=== PATIENT | female | born 1995 | race Caucasian/White ===

== ENCOUNTER 2016-12-16 20:47 | Emergency (ER) | payer OTHER, SELFPAY ==
[2016-12-16 21:03] VITALS: TEMP 97.7; BMI 22.6
[2016-12-16 22:57] LABS: ADD MANUAL DIFF? NO
[2016-12-16 23:04] LABS: PH,URINE 6.5 (4.7-8.0); URINE BILIRUBIN NEGATIVE (NEGATIVE); URINE BLOOD LARGE (NEGATIVE); URINE GLUCOSE (UA) NEGATIVE (NEGATIVE); URINE KETONE 40 mg/dL (NEGATIVE); URINE LEUKOCYTE ESTERASE NEGATIVE Leu/uL (NEGATIVE); URINE PROTEIN NEGATIVE mg/dL (<30 mg/dL); URINE UROBILINOGEN 0.2 E.U./dL (<1 E.U./dL)
[2016-12-16 23:05] LABS: BASO # 0.03 K/mm3 (0.0-2.0); BASO % 0.3 % (0.0-3.0); EOS # 0.1 (0.0-0.7); EOS % 0.8 % (1.5-5.0); GRAN # 7.79 (1.4-6.5); GRAN % 72.8 % (50.0-68.0); HEMATOCRIT 41.4 % (36.0-48.0); LYMPH # 2.2 (1.2-3.4); LYMPH % 20.2 % (22.0-35.0); MEAN CELL VOLUME 82.1 fL (80.0-105.0); MEAN CORPUSCULAR HEMOGLOBIN 29.6 pg (25.0-35.0); MEAN PLATELET VOLUME 9.9 fl (7.0-11.0); MONO # 0.6 (0.1-0.6); MONO % 5.9 % (1.0-6.0); PLATELET COUNT 334 10^3/uL (120.0-450.0); RED CELL DISTRIBUTION WIDTH 12.6 % (11.5-14.5); URINE APPEARANCE CLEAR (CLEAR); URINE COLOR YELLOW (YELLOW); WHITE BLOOD COUNT 10.7 10^3/ul (4.5-11.0)
[2016-12-16 23:06] LABS: URINE RBC 25 - 30 /hpf (0-2)
[2016-12-16 23:14] LABS: ALB/GLOB RATIO 1.1 (1.1-1.8); ALKALINE PHOSPHATASE 72 U/L (38-133); ALT/SGPT 27 U/L (7-56); AST/SGOT 41 U/L (15-39); BILIRUBIN,TOTAL 0.5 mg/dL (0.2-1.3); BLOOD UREA NITROGEN 7 mg/dL (7-21); CALCIUM 9.6 mg/dL (8.4-10.5); CARBON DIOXIDE 27 mmol/L (21-33); CHLORIDE 100 mmol/L (98-107); GFR AFRICAN-AMERICAN > 60; GLUCOSE,RANDOM 99 mg/dL (70-110); POTASSIUM 3.8 mmol/L (3.6-5.0); SODIUM 138 mmol/L (132-148)
--- NOTE | 2016-12-17 01:28 | ED PDOC ---
Arrival/HPI - General Historian: Patient - General Chief Complaint: Anxiety Time Seen by Provider: 12/16/16 22:17 - History of Present Illness Narrative History of Present Illness (Text): 12/17/16 01:30 21yr old female presents today having anxiety attack. Patient states she has a history of anxiety and was told that she should go to the gym whenever she feels anxiety coming on. Patient states she went to the gym to try and work off some energy but she felt like she couldn't be around anyone at that time so she came back home. Patient states she's been feeling depressed for the past day or so. Patient states being around her family seems to help. She denies suicidal or homicidal ideations. No chest pain or shortness of breath. No fevers or chills. Patient states she developed slight headache after the anxiety attacks subsided. States she is feeling much better at present time (Madhavi Purcell) Past Medical History - Provider Review Nursing Documentation Reviewed: Yes - Travel History Have you recently traveled outside [place] w/in the past 3 mons?: No - Infectious Disease Hx of Infectious Diseases: None - Tetanus Immunization Tetanus Immunization: Unknown - Cardiac Hx Cardiac Disorders: No Hx Hypertension: No - Pulmonary Hx Tuberculosis: No - Neurological HX Cerebrovascular Accident: No Hx Seizures: No - HEENT Hx HEENT Disorder: No - Renal Hx Renal Disorder: No - Endocrine/Metabolic Hx Endocrine Disorders: No - Hematological/Oncological Hx Cancer: No - Integumentary Hx Dermatological Disorder: No - Musculoskeletal/Rheumatological Hx Musculoskeletal Disorders: No Hx Falls: No - Gastrointestinal Hx Gastrointestinal Disorders: No - Genitourinary/Gynecological Hx Sexually Transmitted Diseases: No - Psychiatric Hx Psychophysiologic Disorder: No Hx Substance Use: No - Past Surgical History Past Surgical History: No Previous - Anesthesia Hx Anesthesia: No Hx Anesthesia Reactions: No Hx Malignant Hyperthermia: No - Suicidal Assessment Feels Threatened In Home Enviroment: No Family/Social History - Physician Review Nursing Documentation Reviewed: Yes Family/Social History: Unknown Family HX Smoking Status: Never Smoked Hx Alcohol Use: No Hx Substance Use: No Hx Substance Use Treatment: No Allergies/Home Meds Allergies/Adverse Reactions: Allergies No Known Allergies Allergy (Verified 10/21/15 12:01) Review of Systems - Review of Systems Constitutional: absent: Fatigue, Fevers Respiratory: absent: SOB, Cough Cardiovascular: absent: Chest Pain, Palpitations Gastrointestinal: absent: Abdominal Pain, Nausea, Vomiting Genitourinary Female: absent: Dysuria Musculoskeletal: absent: Arthralgias Skin: absent: Rash, Pruritis Neurological: Headache. absent: Dizziness Psychiatric: absent: Anxiety, Depression Physical Exam Vital Signs Reviewed: Yes Temperature: Afebrile Blood Pressure: Normal Pulse: Regular Respiratory Rate: Normal Appearance: Positive for: Well-Appearing, Non-Toxic, Comfortable Pain Distress: None Mental Status: Positive for: Alert and Oriented X 3 - Systems Exam Head: Present: Atraumatic Mouth: Present: Moist Mucous Membranes Neck: Present: Normal Range of Motion Respiratory/Chest: Present: Clear to Auscultation, Good Air Exchange. No: Respiratory Distress, Accessory Muscle Use Cardiovascular: Present: Regular Rate and Rhythm, Normal S1, S2. No: Murmurs Abdomen: Present: Normal Bowel Sounds. No: Tenderness, Distention, Peritoneal Signs, Rebound, Guarding Upper Extremity: Present: Normal ROM Lower Extremity: Present: Normal ROM Neurological: Present: GCS=15 Skin: Present: Warm, Dry, Normal Color. No: Rashes Psychiatric: Present: Alert, Oriented x 3 Vital Signs Temp Pulse Resp BP Pulse Ox 12/17/16 01:33 70 14 119/75 97 12/16/16 23:35 77 14 122/82 98 12/16/16 21:03 97.7 F 74 20 126/73 100 12/16/16 21:02 97.7 F 74 20 126/73 100 Medical Decision Making ED Course and Treatment: 12/17/16 01:32 Patient is nontoxic well-appearing in no distress vital signs are stable. c/o anxiety attack. calm now. CBC WNL CMP WNL Tylenol WNL Salicylate WNL Alcohol level WNL Urine drug screen wnl UA; wnl cxr: wnl ekg normal sinus rhythm with sinus arrhythmia at 65 bpm normal axis normal intervals no ST elevations pt is medically cleared for PES evaluation Patient was seen and evaluated by PES screener: Anny Cleared psychiatrically for discharge Impression; anxiety Followup with behavioral health return if symptoms worsen,persist or if new symptoms develop. (Madhavi Purcell) - Lab Interpretations Lab Results: 12/16/16 22:50 12/16/16 22:50 Lab Results 12/16/16 22:50: WBC 10.7, RBC 5.04, Hgb 14.9, Hct 41.4, MCV 82.1, MCH 29.6, MCHC 36.0, RDW 12.6, Plt Count 334, MPV 9.9, Gran % 72.8 H, Lymph % (Auto) 20.2 L, [place] % (Auto) 5.9, Eos % (Auto) 0.8 L, Baso % (Auto) 0.3, Gran # 7.79 H, Lymph # 2.2, [place] # 0.6, Eos # 0.1, Baso # 0.03, Sodium 138, Potassium 3.8, Chloride 100, Carbon Dioxide 27, Anion Gap 15, BUN 7, Creatinine 0.5, Est GFR ( Amer) > 60, Est GFR (Non-Af Amer) > 60, Random Glucose 99, Calcium 9.6, Total Bilirubin 0.5, AST 41 H, ALT 27, Alkaline Phosphatase 72, Total Protein 9.0 H, Albumin 4.6, Globulin 4.3, Albumin/Globulin Ratio 1.1, Urine Color Yellow , Urine Appearance Clear, Urine pH 6.5, Ur Specific [place] 1.010, Urine Protein Negative, Urine Glucose (UA) Negative, Urine Ketones 40 H, Urine Blood Large H, Urine Nitrate Negative, Urine Bilirubin Negative, Urine Urobilinogen 0.2, Ur Leukocyte Esterase Negative, Urine RBC 25 - 30, Urine WBC 2 - 5, Ur Epithelial Cells 4 - 5, Urine HCG, Qual Negative, Salicylates < 1 L, Urine Opiates Screen Negative, Urine Methadone Screen Negative, Acetaminophen < 10.0 L , Ur Barbiturates Screen Negative, Ur Phencyclidine Scrn Negative, Ur Amphetamines Screen Negative, U Benzodiazepines Scrn Negative, U Oth Cocaine Metabols Negative, U Cannabinoids Screen Negative, Alcohol, Quantitative < 10 - RAD Interpretation Radiology Orders: 12/16/16 22:23 CHEST PORTABLE [RAD] Stat - Medication Orders Current Medication Orders: Discontinued Medications Acetaminophen (Tylenol 325mg Tab) 975 mg PO STAT STA Stop: 12/16/16 22:26 Last Admin: 12/16/16 22:54 Dose: 975 MG MAR Pain/Vitals Document 12/16/16 22:54 HI (Rec: 12/16/16 22:54 [place] [id number]) Pain Reassessment Is This A Pain ReAssessment? No Sleep Is patient sleeping during reassessment? No Presence of Pain Presence of Pain Yes Pain Scale Used Pain Scale Used Numeric Location Pain Location Body [employer] Intensity 5 Scale Used Numeric Disposition/Present on Arrival - Present on Arrival Any Indicators Present on Arrival: No History of DVT/PE: No History of Uncontrolled Diabetes: No Urinary Catheter: No History of Decub. Ulcer: No History Surgical Site Infection Following: None - Disposition Have Diagnosis and Disposition been Completed?: Yes Disposition Time: :25 Patient Plan: Discharge - Disposition Diagnosis: Anxiety Disposition: HOME/ ROUTINE Condition: GOOD Additional Instructions: Follow up with your primary care physician follow up with the [facility] Return if symptoms worsen persist or if new concerning symptoms develop Referrals: Damian Gilbert APN [Primary Care Provider] - Follow up with primary [facility] [Outside] - Follow up with primary Forms: WORK NOTE, SCHOOL NOTE
[2016-12-17 01:33] VITALS: RESP 14
[2016-12-17 01:34] VITALS: BP 119/75; PULSE 70; O2SAT 97
--- NOTE | 2016-12-17 12:46 | CARD ---
APPROVED REPORT EKG Measurement Heart [id number] <Conclusion> Normal sinus rhythm with sinus arrhythmia Normal ECG
--- NOTE | 2016-12-17 13:12 | RAD ---
HISTORY: PES COMPARISON: No prior. FINDINGS: LUNGS: No active pulmonary disease. PLEURA: No significant pleural effusion identified, no pneumothorax apparent. CARDIOVASCULAR: Normal. OSSEOUS STRUCTURES: No significant abnormalities. VISUALIZED UPPER ABDOMEN: Normal. OTHER FINDINGS: None. IMPRESSION: No active disease.
== END 2016-12-17 01:37 | disposition home or self-care (01) ==
LOC: ED 20:47
DX: F41.9 Anxiety disorder, unspecified (principal)